=== PATIENT | male | born 1980 | race African-American/Black ===

== ENCOUNTER 2020-11-13 23:25 | Emergency (ER) | payer MEDICAID ==
[~2020-11-13] VITALS: Ht 190.5 cm; Wt 100.0 kg
[2020-11-14 00:10] VITALS: BP 135/72
[2020-11-14 00:24] LABS: BASOPHILS % 0.8 % (0.0-2.0); EOSINOPHILS % 2.8 % (0.0-5.0); HEMATOCRIT. 38.4 % (42.0-52.0); HEMOGLOBIN. 13.2 g/dL (14.0-18.0); LYMPHOCYTES % 47.7 % (20.0-50.0); MEAN CORPUSCULAR HEMOGLOBIN 28.8 pg (28.0-32.0); MEAN PLATELET VOLUME 9.9 fl (7.4-10.4); MONOCYTES % 6.3 % (2.0-8.0); NEUTROPHILS % 42.4 % (40.0-76.0); PLATELET 173 x1000/uL (130-400); RED BLOOD CELL COUNT 4.58 mill/uL (4.7-6.1)
[2020-11-14 00:32] LABS: CHLORIDE 105 mEq/L (98-107)
[2020-11-14 00:36] LABS: ETHANOL BLOOD < 10 mg/dL
== END 2020-11-14 01:23 | disposition home or self-care (01) ==
LOC: ER 23:25
DX: R56.9 Unspecified convulsions (principal)
CPT/HCPCS: 36415; 80053; 80320; 82962; 85025; 93005; 99284; Z7610; G0480